=== PATIENT | male | born 1985 | race Caucasian/White ===

== ENCOUNTER 2021-05-27 10:06 | Emergency (ER) | payer OTHER ==
[2021-05-27] MEDS ORDERED: NAPROXEN500 MG PO (10:59)
[2021-05-27] MEDS ORDERED: AMOXICILLIN500 MG PO (10:59)
== END 2021-05-27 11:50 | disposition home or self-care (01) ==
LOC: FER 10:06
DX: K02.9 Dental caries, unspecified (principal); K05.10 Chronic gingivitis, plaque induced; K03.81 Cracked tooth
CPT/HCPCS: 99282